=== PATIENT | female | born 1990 | race Asian ===

== ENCOUNTER 2017-06-26 13:42 | Outpatient (CLI) | payer MEDICAID, OTHER ==
[~2017-06-26] VITALS: Ht 152.4 cm; Wt 74.5 kg
[2017-06-26] MEDS ORDERED: LACTATED RINGER'S 1,000 ML IV SCH (13:49)
[2017-06-26 13:55] VITALS: BP 104/55; PULSE 90; RESP 20; Ht 152.4 cm; Wt 74.5 kg
[2017-06-26] MEDS ORDERED: PRENAT PO (14:00)
[2017-06-26] MEDS ORDERED: ACET500C5 PO (14:01)
[2017-06-26] MEDS ORDERED: BEN25 PO (14:01)
--- NOTE | 2017-06-26 14:23 | RADRPT ---
PROCEDURE: Obstetrical ultrasound for biophysical profile CLINICAL INDICATION: Biophysical profile. . TECHNIQUE: Obstetrical ultrasound of the uterus for biophysical profile. Transabdominal views are obtained. COMPARISON: None FINDINGS: Single intrauterine gestation. Presentation: Breech Placenta: Fundal No evidence of placental abruption. No evidence of placenta previa. breathing movement = 2/2 tone = 2/2 motion = 2/2 [place] = 2/2 [place] = 13.8 cm heart rate: 146 beats per minute IMPRESSION: Single intrauterine gestation. Biophysical profile 06/01 Presentation: Breech RPTAT: AADD .Talon Yang MD, MD Date Time Electronically viewed and signed by .Talon Yang MD, on 06/26/2017 14:22 .B/
[2017-06-26 15:16] LABS: ADD UMIC NO; UR ASCORBIC ACID NEGATIVE (NEGATIVE); UR BACTERIA FEW /HPF (NONE SEEN); UR BILIRUBIN (Dip) NEGATIVE (NEGATIVE); UR BLOOD (Dip) NEGATIVE (NEGATIVE); UR CLARITY SLIGHTLY CLOUDY (CLEAR); UR COLOR YELLOW (YELLOW); UR GLUCOSE (Dip) NEGATIVE (NEGATIVE); UR KETONES (Dip) NEGATIVE (NEGATIVE); UR LEUKOCYTE ESTERASE (Dip) NEGATIVE Leu/ul (NEGATIVE); UR NITRITE (Dip) NEGATIVE (NEGATIVE); UR RBC 1 /HPF (0-5); UR SPECIFIC GRAVITY (Dip) 1.019 (1.003-1.030); UR TOTAL PROTEIN (Dip) NEGATIVE (NEGATIVE); UR UROBILINOGEN (Dip) NEGATIVE (NEGATIVE)
[2017-06-26] MEDS ORDERED: SOD FERRIC GLUC COMPLX 125 MG in SOD CHLORIDE 0.9% 100 ML IVPB ONE (16:00)
[2017-06-26 16:13] LABS: BASOPHILS % 0.3 % (0.0-2.0); EOSINOPHILS # 0.1 10^3/ul (0.0-0.5); EOSINOPHILS % 0.5 % (0.0-7.0); HEMATOCRIT 28.6 % (37.0-47.0); HEMOGLOBIN 9.2 g/dl (12.0-16.0); LYMPHOCYTES # 2.2 10^3/ul (0.8-2.9); LYMPHOCYTES % 19.5 % (15.0-51.0); MEAN CORPUSCULAR HEMOGLOBIN 26.2 pg (29.0-33.0); MEAN CORPUSCULAR HGB CONC 32.2 g/dl (32.0-37.0); MEAN CORPUSCULAR VOLUME 81.5 fl (82.0-101.0); MEAN PLATELET VOLUME 10.7 fl (7.4-10.4); MONOCYTES % 8.6 % (0.0-11.0); NEUTROPHILS % 69.2 % (39.0-77.0); NUCLEATED RED BLOOD CELLS% 0.2 /100WBC (0.0-0.0); PLATELET COUNT 183 10^3/UL (140-415); RED BLOOD COUNT 3.51 10^6/ul (4.20-5.40); RED CELL DISTRIBUTION WIDTH 15.7 % (11.5-14.5); WHITE BLOOD COUNT 11.3 10^3/ul (4.8-10.8)
--- NOTE | 2017-06-26 17:24 | CONS ---
Date/Time of Note Date/Time of Note DATE: 06/26/17 TIME: 17:14 Consultation Date/Type/Reason Admit Date/Time June 26, 2017. OB triage consult Reason for Consultation This patient is a 27 years old 7 para 2 spontaneous 2 induced abortion4, who came to the triage clinic complaining of weakness and heart palpitation . On examination she is a well-developed well-nourished patient somewhat anxious and distraught with different complaint including weakness heart attack abdominal pain chest pain. On examination heart has a normal sinus rhythm no murmur chest is clear to auscultation percussion abdomen is soft very rare contraction heart tone is normal with fairly good variability no decelerations. Her general vital signs appear to be normal with blood pressure 104/55, pulse rate 90 ,respiration 20, temperature 98.2 and oxygen saturation 97% in room temperature. heartbeat was about 145/min. Laboratory Tests Test 06/26/17 14:00 06/26/17 15:45 Urine Color YELLOW Urine Clarity SLIGHTLY CLOUDY Urine pH 6.0 Urine Specific [place] 1.019 Urine Ketones NEGATIVEmg/dL Urine Nitrite NEGATIVEmg/dL Urine Bilirubin NEGATIVEmg/dL Urine Urobilinogen NEGATIVEmg/dL Urine Leukocyte Esterase NEGATIVELeu/ul Urine Microscopic RBC 1/HPF Urine Microscopic WBC 3/HPF Urine Calcium Oxalate Crystals MODERATE/HPF Urine Bacteria FEW/HPF Urine Hemoglobin NEGATIVEmg/dL Urine Glucose NEGATIVEmg/dL Urine Total Protein NEGATIVEmg/dl White Blood Count 11.310^3/ul Red Blood Count 3.5110^6/ul Hemoglobin 9.2g/dl Hematocrit 28.6% Mean Corpuscular Volume 81.5fl Mean Corpuscular Hemoglobin 26.2pg Mean Corpuscular Hemoglobin Concent 32.2g/dl Red Cell Distribution Width 15.7% Platelet Count 66036^3/UL Mean Platelet Volume 10.7fl Neutrophils % 69.2% Lymphocytes % 19.5% Monocytes % 8.6% Eosinophils % 0.5% Basophils % 0.3% Nucleated Red Blood Cells % 0.2/100WBC Neutrophils # (Manual) 7.810^3/ul Lymphocytes # 2.210^3/ul Monocytes # 1.010^3/ul Eosinophils # 0.110^3/ul Basophils # 0.010^3/ul Nucleated Red Blood Cells # 0.010^3/ul Current Medications Medications (Trade) Dose Ordered Sig/Jamari Route PRN Reason Start Time Stop Time Status Last Admin Dose Admin Lactated Ringer's 1,000 ml @ 125 mls/hr Q8H IV 06/26/17 13:49 06/26/17 16:00 125 MLS/HR Ferric Sodium Gluconate Complex/ Sodium Chloride (Ferrlecit/NS) 110 ml @ 100 mls/hr ONCE ONCE IVPB 06/26/17 16:00 06/26/17 17:05 DC 06/26/17 16:00 100 MLS/HR Constitutional: No chills, No diaphoresis, No disoriented, No febrile, No improved, No no complaints, No other, No poor po, No requiring IVF, No requiring O2 Eyes: No discharge, No no complaints, No other, No pain, No redness, No visual change ENT: other, No bleeding, No congestion, No discharge, No dysphagia, No no complaints, No pain, No sore throat Respiratory: No cough, No no complaints, No other, No pain, No pleuritic pain, No shortness of breath, No sputum, No wheezing Cardiovascular: No chest pain, No edema, No lightheadedness, No no complaints, No orthopenea, No other, No palpitations, No paroxysmal nocturnal dyspnea Gastrointestinal: No blood, No constipation, No decreased appetite, No diarrhea , No flatus, No nausea, No no complaints, No other, No pain, No passing stool, No vomiting Genitourinary: other (Due to lack of any contraction pelvic exam was not performed), No bleeding, No discharge, No dysuria, No flank pain, No hematuria, No no complaints Musculoskeletal: No back pain, No bone/joint pain, No neck pain, No no complaints, No other, No restricted range of motion, No swelling Skin: No bruising, No erythema, No laceration, No no complaints, No other, No pruritis, No rash, No skin lesions Additional Comments On ultrasound study the report was a single intrauterine gestation in breech presentation no evidence of placenta abruption or previa heart rate was 146 bpm the [place] was 13.8 cm.. The biophysical profile was 8/8. I should mention that her physician Dr. Lara Gomez ordered an iron-containing solution for illicit to be given IV which was a performed and she was discharged to be followed in her obstetricians clinic Social History Smoking Status: Never smoker Exam/Review of Systems Vital Signs Vitals Vital Signs Date Time Temp Pulse Resp B/P Pulse Ox O2 Delivery O2 Flow Rate FiO2 06/26/17 13:55 98.2 90 20 104/55 Room Air Results Result Diagram: 06/26/17 1545 Results 24 hrs Laboratory Tests Test 06/26/17 14:00 06/26/17 15:45 Urine Color YELLOW Urine Clarity SLIGHTLY CLOUDY A Urine pH 6.0 Urine Specific [place] 1.019 Urine Ketones NEGATIVE Urine Nitrite NEGATIVE Urine Bilirubin NEGATIVE Urine Urobilinogen NEGATIVE Urine Leukocyte Esterase NEGATIVE Urine Microscopic RBC 1 Urine Microscopic WBC 3 Urine Calcium Oxalate Crystals MODERATE Urine Bacteria FEW A Urine Hemoglobin NEGATIVE Urine Glucose NEGATIVE Urine Total Protein NEGATIVE White Blood Count 11.3 H Red Blood Count 3.51 L Hemoglobin 9.2 L Hematocrit 28.6 L Mean Corpuscular Volume 81.5 L Mean Corpuscular Hemoglobin 26.2 L Mean Corpuscular Hemoglobin Concent 32.2 Red Cell Distribution Width 15.7 H Platelet Count 183 Mean Platelet Volume 10.7 H Neutrophils % 69.2 Lymphocytes % 19.5 Monocytes % 8.6 Eosinophils % 0.5 Basophils % 0.3 Nucleated Red Blood Cells % 0.2 H Neutrophils # (Manual) 7.8 H Lymphocytes # 2.2 Monocytes # 1.0 H Eosinophils # 0.1 Basophils # 0.0 Nucleated Red Blood Cells # 0.0 Medications Medications Current Medications Lactated Ringer's (Lr) 1,000 ml @ 125 mls/hr Q8H IV Last administered on t 16:00; Admin Dose 125 MLS/HR; Start 06/26/17 at 13:49 BALDOMERO NAYLOR MD Jun 26, 2017 17:24
[2017-06-26 18:15] LABS: ALBUMIN 3.3 g/dl (3.3-4.9); ALBUMIN/GLOBULIN RATIO 1.06; BILIRUBIN,INDIRECT 0.1 mg/dl (0-1.1); BILIRUBIN,TOTAL 0.1 mg/dl (0.2-1.3); CALCIUM 8.8 mg/dl (8.4-10.2); CREATININE 0.76 mg/dl (0.44-1.00); POTASSIUM 3.7 mmol/L (3.5-5.1); TOTAL PROTEIN 6.4 g/dl (6.1-8.1)
== END 2017-06-26 17:45 | disposition home or self-care (01) ==
LOC: OBT 13:42 → L-D 13:44 → OBT 17:45
PROVIDERS: ATTEND Obstetrics & Gynecology
DX: O26.893 Other specified pregnancy related conditions, third trimester (principal); Z3A.32 32 weeks gestation of pregnancy; R00.2 Palpitations; R53.1 Weakness
CPT/HCPCS: 36415; 76818; 80053; 81001; 81003; 85025; J2916; J7120; Z7500; Z7610; G0463

== ENCOUNTER 2017-07-07 15:54 | Outpatient (CLI) | payer OTHER ==
[~2017-07-07] VITALS: Ht 157.5 cm; Wt 75.0 kg
[~2017-07-07 15:54] MED LIST: ACET500C5 PO; BEN25 PO; PRENAT PO
[2017-07-07 16:21] VITALS: BP 100/55; PULSE 86; RESP 20; Ht 157.5 cm; Wt 75.0 kg
[2017-07-07] MEDS ORDERED: LACTATED RINGER'S 1,000 ML IV SCH (17:00)
[2017-07-07] MEDS ORDERED: SOD FERRIC GLUC COMPLX 125 MG in SOD CHLORIDE 0.9% 100 ML IVPB ONE (18:00)
--- NOTE | 2017-07-07 19:53 | TRIAGE ---
OB Triage Datetime Report Generated by CPN: 07/07/2017 19:53 Datetime: 07/07/2017 17:51 Comments: monitors off Datetime: 07/07/2017 17:48 Labor Evaluation Frequency: 0 Monitor Mode: External Resting Tone [place]: Relaxed Heart Rate FHR Baseline Rate: 135 Monitor Mode: External US FHR Baseline Changes: No Baseline Change Variability: Moderate 6-25 bpm Accelerations: 15X15 Decelerations: None Category: Category I Datetime: 07/07/2017 16:09 Assessment Type: Triage Maternal Assessment Level of Consciousness: Fully Conscious DTR's/Clonus: DTRs 2+; No Clonus Headache: Denies Blurred Vision: No Respiratory Effort: Unlabored; Regular Rhythm; Equal Expansion Breath Sounds, Left: Clear and Equal Breath Sounds, Right: Clear and Equal Nausea/Vomiting: Denies RUQ Epigastric Pain: Denies Facial Edema: None Fall Risk Assessment History of Falling: (0) No Secondary Diagnosis: (0) No Ambulatory Aid: (0) Bedrest/Nurse Assist IV Therapy: (0) No Gait: (0) Normal/Bedrest/Immobile Mental Status: (0) Oriented to Own Ability Fall Score: 0 Fall Risk Score Definition: No Risk: No action required Datetime: 06/26/2017 17:12 Time of Arrival: 07/07/2017 16:08 EGA: 34.4 Arrived By: Ambulatory Arrived From: Home Chief Complaint: pt here for serial fe infusions Movement: Present Contractions: Denies/Absent Rupture of Membranes: Denies Vaginal Bleeding: None Vaginal Discharge: Denies Recent Sexual Intercouse: Denies Abdominal Trauma: Not Applicable Patient Complaints: None Time Provider Notified: 07/07/2017 16:20 Provider Notified: [email or web address] Datetime: 06/26/2017 17:01 Time of Arrival: 06/26/2017 13:25 EGA: 33.0 Arrived By: Ambulatory Arrived From: Home Chief Complaint: CAME WITH AN RX FOR NST/ BPP AND IV DOSE OF FERRLECIT Movement: Present Contractions: Denies/Absent Rupture of Membranes: Denies Vaginal Bleeding: None Vaginal Discharge: Denies Recent Sexual Intercouse: Denies Abdominal Trauma: Not Applicable Additional Patient Complaints: DIZZINESS ON EXERTION, FEELING VERY WEAK WITH PREVIOUS DIAGNOSIS OF HEART MURMUR WITH NOT BEING FOLLOWE BY AN WIRELESS TEAM MEMBER. Time Provider Notified: 06/26/2017 15:00 Provider Notified: DR. CALDERON Initial Plan: NST/ BPP IV HYDRATION Datetime: 06/26/2017 16:32 Stage of : OB Triage Datetime: 06/26/2017 15:16 Labor Evaluation Frequency: 0 Monitor Mode: External Duration (sec)2399: 0 Resting Tone [place]: Relaxed Contraction Comments: PT DENIES UC'S AT THE BEDSIDE Heart Rate FHR Baseline Rate: 145 Monitor Mode: External US Variability: Moderate 6-25 bpm Accelerations: 15X15 Decelerations: None Category: Category I Comments: NST REACTIVE FOR GESTATIONAL AGE
--- NOTE | 2017-07-07 21:36 | PN ---
Triage Information Date/Time July 07, 2017 Reason for visit: Patient was sent from Dr. Leon office for iron infusion due to history of anemia. Cannot tolerate oral iron Weeks of Gestation 34 weeks and 4 days /Para 7 para 2 Patient had a history of miscarriage prior to current had significant bleeding that need to undergoing blood transfusion. Per patient could not tolerate oral iron treatment and for that reason has been receiving weekly iron infusion. She comes to triage every week to get IV infusion. Denies any vaginal bleeding, leaking of fluid or uterine contractions or any other complaints. Denies any dizziness, lightheadedness, prior history of thalassemia or any hematologic problem in the past. Diabetes: none Hypertention: none Objective Vital Signs Date Time Temp Pulse Resp B/P Pulse Ox O2 Delivery O2 Flow Rate FiO2 07/07/17 16:21 98.0 86 20 100/55 Room Air Heart Rate: 120's Contractions: None Exam Appears: Alert and oriented 4. Patient does not appear to be in any acute distress. Abdomen: Soft, gravid, fundal height consistent with gestational age. No tenderness, no rebound tenderness or guarding Received IV iron infusion. Denies any symptoms Reports last time at doctor's office had her hemoglobin checked and it was 9. History: Category 1. Baseline 135. No contractions. Disposition: Discharge Assessment/Plan Patient was discharged home in stable condition Follow up with her OB doctor at her next appointment in less than 1 week or sooner as needed Advised the patient about iron rich diet KVNG DILL MD Jul 07, 2017 21:36
--- NOTE | 2017-07-07 21:42 | TRIAGE ---
OB Triage Datetime Report Generated by CPN: 07/07/2017 21:42 Datetime: 07/07/2017 20:30 Time of Arrival: 07/07/2017 16:08 EGA: 34.4 Arrived By: Ambulatory Arrived From: Home Additional Patient Complaints: IV IRON INFUSION Time Provider Notified: 07/07/2017 16:20 Provider Notified: KVNG
== END 2017-07-07 20:08 | disposition home or self-care (01) ==
LOC: OBT 15:54 → OBG 15:56 → OBT 20:08
PROVIDERS: ATTEND Obstetrics & Gynecology
DX: O99.013 Anemia complicating pregnancy, third trimester (principal); D64.9 Anemia, unspecified; Z3A.34 34 weeks gestation of pregnancy
CPT/HCPCS: 36415; 96360; 96361; 96365; J2916; J7120; Z7500; Z7610; G0463

== ENCOUNTER 2017-07-27 16:56 | Outpatient (CLI) | payer OTHER ==
[~2017-07-27] VITALS: Ht 157.5 cm; Wt 75.4 kg
[2017-07-27 17:10] VITALS: BP 109/65; PULSE 91; RESP 18
[2017-07-27 17:12] VITALS: Ht 157.5 cm; Wt 75.4 kg
--- NOTE | 2017-07-27 19:07 | RADRPT ---
PROCEDURE: OB ultrasound CLINICAL INDICATION: Follow-up pelvic pain TECHNIQUE: Multiple transverse and longitudinal OB images of the pelvis were obtained. The images were reviewed on a high-resolution PACS workstation. COMPARISON: 06/26/2017 FINDINGS: A single live intrauterine is seen with a heart rate of 139 beats per minute. The pr esentation is vertex. The placenta is right fundal and grade 2. No evidence of placenta previa or a bruption is seen. IMPRESSION: Right fundal location of the placenta. RPTAT: HPNM Physician Neymar Date Time Electronically viewed and signed by Physician Neymar on 07/27/2017 19:06 /
--- NOTE | 2017-07-27 20:49 | CONS ---
Date/Time of Note Date/Time of Note DATE: 07/27/17 TIME: 20:33 Consultation Date/Type/Reason Admit Date/Time July 272016 Ob triage consult. This patient is a 27 years old G7 P 2 Ab 4 ,living 2. with EDC of 08/13/2017, which makes her 36 weeks and 3 days now. She came to triage complaining pain on the R side of her abdomen. on examination she is a well developed, well nourished woman She is scheduled to have a repeat C Section on 08/14/2017 Her general vital signs are WNL. Blood presser is 109/65. pulse rate is 91, respiration 18 and temperature p8.5. heart rate is 135. No abdominal tenderness or bruising, no CVA tenderness. heart tone is normal with good variability, and occasional acceleration, no decells. Constitutional: No chills, No diaphoresis, No disoriented, No febrile, No improved, No no complaints, No other, No poor po, No requiring IVF, No requiring O2 Eyes: No discharge, No no complaints, No other, No pain, No redness, No visual change ENT: No bleeding, No congestion, No discharge, No dysphagia, No no complaints, No other, No pain, No sore throat Respiratory: No cough, No no complaints, No other, No pain, No pleuritic pain, No shortness of breath, No sputum, No wheezing Cardiovascular: No chest pain, No edema, No lightheadedness, No no complaints, No orthopenea, No other, No palpitations, No paroxysmal nocturnal dyspnea Gastrointestinal: No blood, No constipation, No decreased appetite, No diarrhea , No flatus, No nausea, No no complaints, No other, No pain, No passing stool, No vomiting Genitourinary: No bleeding, No discharge, No dysuria, No flank pain, No hematuria, No no complaints, No other Musculoskeletal: No back pain, No bone/joint pain, No neck pain, No no complaints, No other, No restricted range of motion, No swelling Skin: No bruising, No erythema, No laceration, No no complaints, No other, No pruritis, No rash, No skin lesions Neurologic: No confusion, No dizziness, No focal-weakness, No headache, No no complaints, No other, No seizure, No syncope Additional Comments Her lab tests and ultrasound studies unremarkable: PROCEDURE: OB ultrasound CLINICAL INDICATION: Follow-up pelvic pain (FINDINGS: A single live intrauterine is seen with a heart rate of 139 beats per minute. The presentation is vertex. The placenta is right fundal and grade 2. No evidence of placenta previa or abruption is seen. IMPRESSION: Right fundal location of the placenta.) Disposition, reassurance given and discharged to followed in her household cook's clinic. Exam/Review of Systems Vital Signs Vitals Vital Signs Date Time Temp Pulse Resp B/P Pulse Ox O2 Delivery O2 Flow Rate FiO2 07/27/17 17:10 98.5 91 18 109/65 Room Air BALDOMERO NAYLOR MD Jul 27, 2017 20:46
--- NOTE | 2017-07-27 22:26 | TRIAGE ---
OB Triage Datetime Report Generated by CPN: 07/27/2017 22:26 Datetime: 07/27/2017 18:29 Stage of : OB Triage Datetime: 07/27/2017 18:22 Labor Evaluation Frequency: occasional Monitor Mode: External Duration (sec)2399: 30-60 Pattern: Normal: <= 5 Contractions in 10 Minutes Resting Tone [place]: Relaxed Heart Rate FHR Baseline Rate: 135 Monitor Mode: External US Variability: Moderate 6-25 bpm Accelerations: 15X15 Decelerations: None Category: Category I Datetime: 07/27/2017 17:17 Stage of : OB Triage Assessment Type: Triage Maternal Assessment Level of Consciousness: Fully Conscious DTR's/Clonus: DTRs 2+; No Clonus Headache: Denies Blurred Vision: No Respiratory Effort: Unlabored; Regular Rhythm; Equal Expansion Breath Sounds, Left: Clear and Equal Breath Sounds, Right: Clear and Equal Nausea/Vomiting: Denies RUQ Epigastric Pain: Denies Lower Extremities Edema: None Degree: None Upper Extremities Edema: None Degree: None Facial Edema: None Temperature Route: Axillary Fall Risk Assessment History of Falling: (25) Yes Secondary Diagnosis: (0) No Ambulatory Aid: (0) Bedrest/Nurse Assist IV Therapy: (0) No Gait: (0) Normal/Bedrest/Immobile Mental Status: (0) Oriented to Own Ability Fall Score: 25 Fall Risk Score Definition: Low Risk: Please see standard fall prevention interventions Labor Evaluation Frequency: OCCASIONAL Monitor Mode: External Duration (sec)2399: 50 SRC Quality: Mild Pattern: Normal: <= 5 Contractions in 10 Minutes Heart Rate FHR Baseline Rate: 135 Monitor Mode: External US FHR Baseline Changes: No Baseline Change Variability: Moderate 6-25 bpm Accelerations: 15X15 Decelerations: None Category: Category I Pain Assessment Pain Scale: 4 Pain Presence: Intermittent Pain Type: Cramping Pain Location: Abdomen; Back Pain Goal: 2 Pain Relief Measures: Comfort Measures Datetime: 07/27/2017 17:15 Time of Arrival: 07/27/2017 16:50 EGA: 36.3 Arrived By: Wheelchair Arrived From: Home Chief Complaint: STATED SHE FELL LAST NIGHT Movement: Present Contractions: Occasional Rupture of Membranes: Denies Vaginal Bleeding: None Vaginal Discharge: Denies Recent Sexual Intercouse: Denies Abdominal Trauma: Fall Patient Complaints: Cramping; Back Pain Time Provider Notified: 07/27/2017 18:05 Provider Notified: Dr. hoover Initial Plan: US, have laborist evaluate patient Datetime: 07/07/2017 20:30 EGA: 33.4 Chief Complaint: IV IRON INFUSION Datetime: 07/07/2017 16:09 Fall Score: 0 Fall Risk Score Definition: No Risk: No action required Datetime: 06/26/2017 17:12 EGA: 33.4 Datetime: 06/26/2017 17:01 EGA: 32.0
== END 2017-07-27 19:37 | disposition home or self-care (01) ==
LOC: OBT 16:56 → L-D 16:58 → OBT 19:37
PROVIDERS: ATTEND Obstetrics & Gynecology
DX: O26.893 Other specified pregnancy related conditions, third trimester (principal); Z3A.36 36 weeks gestation of pregnancy; R10.2 Pelvic and perineal pain
CPT/HCPCS: 76815; Z7500; G0463

== ENCOUNTER 2017-08-16 05:22 | Inpatient (IN) | payer OTHER ==
[~2017-08-16] VITALS: Ht 157.5 cm; Wt 75.3 kg
[2017-08-16] MEDS ORDERED: LACTATED RINGER'S 1,000 ML IV SCH (05:28)
[2017-08-16] MEDS ORDERED: MISOPROSTOL 200 MCG TAB PR PRN (05:30)
[2017-08-16] MEDS ORDERED: CEFAZOLIN 2 GM/50 ML (PMX) 50 ML IV SCH (05:30)
[2017-08-16] MEDS ORDERED: METHYLERGONOVINE 0.2 MG INJ IM PRN (05:30)
[2017-08-16] MEDS ORDERED: OXYTOCIN 30 UNITS/LR 500 ML IV PRN (05:30)
[2017-08-16] MEDS ORDERED: OXYTOCIN 30 UNITS/LR 500 ML IV SCH ×2 (05:30→11:00)
[2017-08-16] MEDS ORDERED: CARBOPROST 250 MCG INJ IM PRN (05:30)
[2017-08-16 05:34] VITALS: BP 116/68; PULSE 88; RESP 18; Ht 157.5 cm; Wt 75.3 kg
[2017-08-16 06:01] LABS: BASOPHILS % 0.2 % (0.0-2.0); EOSINOPHILS # 0.1 10^3/ul (0.0-0.5); EOSINOPHILS % 0.7 % (0.0-7.0); HEMATOCRIT 33.1 % (37.0-47.0); HEMOGLOBIN 10.3 g/dl (12.0-16.0); LYMPHOCYTES # 2.5 10^3/ul (0.8-2.9); LYMPHOCYTES % 25.5 % (15.0-51.0); MEAN CORPUSCULAR HEMOGLOBIN 25.1 pg (29.0-33.0); MEAN CORPUSCULAR HGB CONC 31.1 g/dl (32.0-37.0); MEAN CORPUSCULAR VOLUME 80.7 fl (82.0-101.0); MEAN PLATELET VOLUME 11.4 fl (7.4-10.4); MONOCYTES % 9.9 % (0.0-11.0); NEUTROPHIL # 6.2 10^3/ul (1.6-7.5); NEUTROPHILS % 62.4 % (39.0-77.0); NUCLEATED RED BLOOD CELLS% 0.2 /100WBC (0.0-0.0); PLATELET COUNT 193 10^3/UL (140-415); RED CELL DISTRIBUTION WIDTH 17.2 % (11.5-14.5)
[2017-08-16 06:28] LABS: INR 0.92; PARTIAL THROMBOPLASTIN TIME 26.1 Sec (25.0-35.0); PROTIME 12.4 Sec (12.2-14.2)
[2017-08-16] MEDS ORDERED: KETOROLAC 30 MG INJ IV SCH (08:00)
[2017-08-16] MEDS ORDERED: BISACODYL (EC) 5 MG TAB PO PRN (08:00)
[2017-08-16] MEDS ORDERED: DIPHENHYDRAMINE 50 MG CAP PO PRN (08:00)
[2017-08-16] MEDS ORDERED: HYDROCODONE/APAP (5/325) TAB PO PRN (08:00)
[2017-08-16] MEDS ORDERED: ZOLPIDEM 5 MG TAB PO PRN ×2 (08:00→09:30)
[2017-08-16] MEDS ORDERED: ONDANSETRON 4 MG INJ IV PRN ×2 (08:00→09:30)
[2017-08-16] MEDS ORDERED: HYDROmorphONE 1 MG/ML SYG IV PRN (08:00)
[2017-08-16] MEDS ORDERED: FENTAnyl 50 MCG/ML VIAL ONE (08:02)
[2017-08-16] MEDS ORDERED: morphine SULFATE/PF (10 MG/10 ML) INJ ONE (08:03)
--- NOTE | 2017-08-16 08:03 | SIPON ---
Date/Time of Note Date/Time of Note DATE: 08/16/17 TIME: 08:02 Operative Report Preoperative Diagnosis previous c/s habitual Postoperative Diagnosis same Operation/Procedure Performed REPEAT C/S Surgeon see signature line clinic office assistant ARELY FOFANA Anesthesia: spinal Estimated blood loss: other Transfusion Required none Specimen PLACENTA Grafts/Implants none Complications none TREVOR CALDERON MD Aug 16, 2017 08:03
[2017-08-16] MEDS ORDERED: PHENYLephrine (100 MCG/ML) 5ML SYG ONE ×3 (08:20→08:58)
[2017-08-16] MEDS ORDERED: DEXAMETHASONE 4 MG/ML 1 ML INJ ONE (08:21)
[2017-08-16] MEDS ORDERED: EPHEDrine SULFATE 50 MG/5 ML SYG ONE (08:23)
[2017-08-16] MEDS ORDERED: NALOXONE (0.4 MG/ML) INJ IV PRN (09:30)
[2017-08-16] MEDS ORDERED: HYDROmorphONE 0.5 MG/0.5 ML SYG IV PRN ×2 (09:30)
[2017-08-16] MEDS ORDERED: KETOROLAC 30 MG INJ IV PRN (09:30)
[2017-08-16] MEDS ORDERED: NALBUPHINE HCL (10 MG/1 ML) INJ IV PRN (09:30)
--- NOTE | 2017-08-16 10:06 | OPR ---
DATE OF OPERATION: 08/16/2017 PREOPERATIVE DIAGNOSES: 1. Term . 2. Previous section. 3. Habitual . POSTOPERATIVE DIAGNOSIS: 1. Term . 2. Previous section. 3. Habitual . 4. Baby boy, Apgars 9, breech presentation. SURGEON: Dr. Holland DYER ASSISTANT: Dr. Beach ANESTHESIA: Spinal, Dr. Hrarison PROCEDURE: The patient was given spinal anesthesia, placed in the supine position. The abdomen was prepped and draped and a Eckert catheter was placed in the bladder. The abdomen was prepped and caitlin ped and an elliptical incision was made around the previous old scar. The abdomen was opened in lay ers without difficulties. The abdominal cavity was reached. The lower uterine segment was identifi ed and the bladder flap was made. The uterus was opened in the midline and the incision was increas ed laterally on either side for about 3 inches. The baby's buttocks were directed to the incision. The baby was transverse with the back down. The baby's buttock were switched to delivered by breec h presentation. It was a kia breech. The baby's arms were tacked down and the head was delivered finally, with a cord that was clamped an d cut. The baby was handed over to the materials specialist team. The baby's was 9. The cord blood was obtained. The placenta was removed. The uterus was swabbed out. The cervix was opened with a ring forceps and the uterus was closed in 2 layers using #1 Monocryl continuous suture imbedding th e first line of suture and hemostasis was good. Both tubes and ovaries were normal. The abdomen wa s closed after sponge counts and instrument counts were correct with a 2-0 Vicryl suture for periton eum, #0 PDS looped suture for the fascia, 2-0 Vicryl for the subcutaneous tissue, and 3-0 Monocryl s ubcuticular to the skin. Dermabond and Steri-Strips were used. Interceed was used on the area of t he incision for adhesion prevention. The patient tolerated the procedure well and left the OR awake and stable. Sponge counts and instrument counts were correct. Intravenous antibiotics were given for prophylaxis. Blood loss was approximately 500 mL, and the urine was clear again. Dictated By: TREVOR COOK/GIDEON Conf#: [id number] [facility]#: [id number]
[2017-08-16] MEDS: OXYTOCIN 30 UNITS/LR 500 ML IV SCH ×2 (10:45→12:06)
[2017-08-16] MEDS: DIPHENHYDRAMINE 50 MG INJ IV PRN (12:06)
[2017-08-16 12:15] VITALS: BP 118/76; PULSE 67; RESP 18
[2017-08-16 12:35] VITALS: BP 129/54; PULSE 60; RESP 19
[2017-08-16 15:40] VITALS: BP 105/57; PULSE 72; RESP 19
[2017-08-16] MEDS: METOCLOPRAMIDE 10 MG TAB PO SCH ×3 (17:10→23:49)
[2017-08-16] MEDS: CEFAZOLIN 1 GM/50 ML (PMX) 50 ML IVPB SCH (17:10)
[2017-08-16] MEDS: LACTATED RINGER'S 1,000 ML IV SCH (17:10)
[2017-08-16 19:45] VITALS: BP 90/50; PULSE 72; RESP 18
[2017-08-16 23:50] VITALS: BP 92/61; PULSE 75; RESP 18
[2017-08-17] MEDS: CEFAZOLIN 1 GM/50 ML (PMX) 50 ML IVPB SCH ×3 (01:04→18:31)
[2017-08-17] MEDS: LACTATED RINGER'S 1,000 ML IV SCH ×4 (01:05→15:02)
[2017-08-17] MEDS: DIPHENHYDRAMINE 50 MG INJ IV PRN (01:05)
[2017-08-17 04:08] VITALS: BP 95/56; PULSE 61; RESP 18
[2017-08-17] MEDS: METOCLOPRAMIDE 10 MG TAB PO SCH ×3 (05:43→18:30)
[2017-08-17 08:30] VITALS: BP 116/65; PULSE 75; RESP 17
[2017-08-17] MEDS: HYDROCODONE/APAP (5/325) TAB PO PRN (10:05)
[2017-08-17 10:41] LABS: BASOPHILS % 0.2 % (0.0-2.0); EOSINOPHILS % 0.2 % (0.0-7.0); HEMATOCRIT 34.6 % (37.0-47.0); HEMOGLOBIN 10.6 g/dl (12.0-16.0); LYMPHOCYTES # 2.7 10^3/ul (0.8-2.9); LYMPHOCYTES % 15.9 % (15.0-51.0); MEAN CORPUSCULAR HEMOGLOBIN 24.5 pg (29.0-33.0); MEAN CORPUSCULAR HGB CONC 30.6 g/dl (32.0-37.0); MEAN CORPUSCULAR VOLUME 79.9 fl (82.0-101.0); MEAN PLATELET VOLUME 11.4 fl (7.4-10.4); MONOCYTE # 1.3 10^3/ul (0.3-0.9); MONOCYTES % 7.8 % (0.0-11.0); NEUTROPHILS % 75.3 % (39.0-77.0); PLATELET COUNT 191 10^3/UL (140-415); RED BLOOD COUNT 4.33 10^6/ul (4.20-5.40); RED CELL DISTRIBUTION WIDTH 17.5 % (11.5-14.5); WHITE BLOOD COUNT 17.3 10^3/ul (4.8-10.8)
[2017-08-17 10:52] LABS: CREATININE 0.61 mg/dl (0.44-1.00); POTASSIUM 4.2 mmol/L (3.5-5.1)
--- NOTE | 2017-08-17 11:21 | PN ---
Date/Time of Note Date/Time of Note DATE: 08/17/17 TIME: 11:19 Assessment/Plan Lines/Catheters IV Catheter Type (from Nrsg): Peripheral IV Subjective 24 Hr Interval Summary Day 1 post patient is febrile feels good in pain not controlled with p.o. meds Otherwise she is doing good she is stable with the uterus contracted the incision is dry lochia normal no active bleeding Exam/Review of Systems Vital Signs Vitals Vital Signs Date Time Temp Pulse Resp B/P Pulse Ox O2 Delivery O2 Flow Rate FiO2 08/17/17 08:30 98.0 75 17 116/65 Room Air 08/17/17 01:48 98 21 Intake and Output 08/16/17 08/16/17 08/17/17 15:00 23:00 07:00 Intake Total 750 ml 250 ml 925 ml Output Total 400 ml 2600 ml 1350 ml Balance 350 ml -2350 ml -425 ml Exam Constitutional: alert, oriented, well developed Psych: nl mood/affect, no complaints Head: atraumatic, normocephalic Eyes: EOMI, nl conjunctiva, nl lids, nl sclera ENMT: mucosa pink and moist, nl external ears & nose, nl lips & teeth, nl nasal mucosa & septum Neck: non-tender, supple Respiratory: clear to auscultation, normal air movement Cardiovascular: nl pulses, regular rate and rhythm Gastrointestinal: nl liver, spleen, non-tender, soft Musculoskeletal: nl extremities to inspection, nl gait and stance Extremities: normal pulses Neurological: CUT AND COVER LINE WORKER II-XII intact, nl mental status, nl speech, nl strength Skin: nl turgor, rash or lesions Lymph: nl lymph nodes Results Result Diagram: 08/17/17 1014 08/17/17 1014 TREVOR CALDERON MD Aug 17, 2017 11:21
[2017-08-17] MEDS ORDERED: BISACODYL (EC) 5 MG TAB PO ONE (11:30)
--- NOTE | 2017-08-17 12:30 | PREOPHP ---
DATE OF ADMISSION: 08/16/2017 The patient coming for surgical procedure on 08/16/2017. HISTORY OF PRESENT ILLNESS: This is a 26-year-old female, 7, para 2, abortions 4, with 2 li ving children. This patient had a vaginal delivery followed by a section. She is at this time with a last period of 11/19/2016 and EDC of 08/26/2017. She is being admitted for a r epeat section This is a 26-year-old female, who had been seeing me since early with a history of habitua l abortions and she had been treated with Prometrium during the first half of the and she has been on baby aspirin until 32 weeks of . This patient 39 weeks' gestation and sh e is undergoing a repeat section. She had no complications during this and she h as a history of 1 . She had been transfused in 2016 due to miscarriage. She has a history of anemia. She had rheumatic fever. She had heart murmur. FAMILY HISTORY: Hypertension in her parents. Her oldest daughter with epilepsy, autism and thyroid disease. ALLERGIES: SHE IS NOT ALLERGIC TO ANY MEDICATIONS. SOCIAL HISTORY: She does not drink or smoke, and she has no history of alcohol. PHYSICAL EXAMINATION: GENERAL: She is 5 feet 2 inches, weight is started at 136 and by now is 166, a 30- pound weight gai n. Blood pressure is normal with a blood pressure of 110/60, pulse is 80, respirations 16. HEAD AND NECK: Normal. CHEST: Clear. HEART: Normal sinus rhythm. ABDOMEN: Soft, nontender. No masses. The heart tones are normal. PELVIC: Cervix is closed, long and posterior. EXTREMITIES: Normal with normal pulses, normal reflexes and no edema. DIAGNOSES: Term with previous section. PLAN: The patient is undergoing a repeat section. She has been advised of the possible ri sks and possible complications of the procedure with her alternatives and options. Written informat ion was provided. She had no more questions and agreed to go ahead with the procedure with full und erstanding and no more questions. Dictated By: TREVOR COOK/GIDEON Conf#: [id number] DID#: [id number]
[2017-08-17] MEDS: KETOROLAC 30 MG INJ IV SCH ×2 (15:22→21:42)
[2017-08-17 16:00] VITALS: BP 116/68; PULSE 60; RESP 17
[2017-08-17 19:45] VITALS: BP 122/74; PULSE 73; RESP 18
[2017-08-18] MEDS: CEFAZOLIN 1 GM/50 ML (PMX) 50 ML IVPB SCH ×3 (02:18→18:28)
[2017-08-18] MEDS: KETOROLAC 30 MG INJ IV SCH ×4 (03:42→21:12)
[2017-08-18 04:10] VITALS: BP 114/71; PULSE 63; RESP 18
[2017-08-18] MEDS: METOCLOPRAMIDE 10 MG TAB PO SCH ×4 (06:00→21:11)
[2017-08-18 08:00] VITALS: BP 127/65; PULSE 69; RESP 18
--- NOTE | 2017-08-18 11:17 | PN ---
Date/Time of Note Date/Time of Note DATE: 08/18/17 TIME: 11:14 Assessment/Plan Lines/Catheters IV Catheter Type (from Nrsg): Saline Lock Subjective 24 Hr Interval Summary Date 2 post section Afebrile passing gases tolerating diet, pain controlled with p.o. meds uterus contracted, lochia normal Incision healing well. Ambulating Constitutional: BM, ambulates, flatus, improved, no complaints, urine output Feeding: advancing diet Detailed Summary Eyes: no complaints ENT: no complaints Respiratory: no complaints Cardiovascular: no complaints Gastrointestinal: no complaints Genitourinary: no complaints Musculoskeletal: no complaints Skin: no complaints Neurologic: no complaints Endocrine: no complaints Lymphatic: no complaints Psychological: nl mood/affect, no complaints Immunologic: no complaints Exam/Review of Systems Vital Signs Vitals Vital Signs Date Time Temp Pulse Resp B/P Pulse Ox O2 Delivery O2 Flow Rate FiO2 08/18/17 08:00 98.7 69 18 127/65 Room Air 08/17/17 01:48 98 21 Intake and Output 08/17/17 08/17/17 08/18/17 15:00 23:00 07:00 Intake Total 1050 ml 525 ml Output Total 1900 ml 700 ml Balance -850 ml -175 ml Exam Constitutional: alert, oriented, well developed Psych: nl mood/affect, no complaints Head: atraumatic, normocephalic Eyes: EOMI, nl conjunctiva, nl lids, nl sclera ENMT: mucosa pink and moist, nl external ears & nose, nl lips & teeth, nl nasal mucosa & septum Neck: non-tender, supple Respiratory: clear to auscultation, normal air movement Cardiovascular: nl pulses, regular rate and rhythm Gastrointestinal: nl liver, spleen, non-tender, soft Musculoskeletal: nl extremities to inspection, nl gait and stance Extremities: normal pulses 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
[2017-08-18 11:43] LABS: BASOPHILS % 0.3 % (0.0-2.0); EOSINOPHILS # 0.1 10^3/ul (0.0-0.5); EOSINOPHILS % 0.5 % (0.0-7.0); HEMATOCRIT 31.5 % (37.0-47.0); HEMOGLOBIN 9.8 g/dl (12.0-16.0); LYMPHOCYTES # 2.4 10^3/ul (0.8-2.9); LYMPHOCYTES % 17.9 % (15.0-51.0); MEAN CORPUSCULAR HGB CONC 31.1 g/dl (32.0-37.0); MEAN CORPUSCULAR VOLUME 80.4 fl (82.0-101.0); MEAN PLATELET VOLUME 11.7 fl (7.4-10.4); MONOCYTE # 0.8 10^3/ul (0.3-0.9); MONOCYTES % 5.8 % (0.0-11.0); NEUTROPHIL # 9.9 10^3/ul (1.6-7.5); NEUTROPHILS % 74.9 % (39.0-77.0); PLATELET COUNT 211 10^3/UL (140-415); RED BLOOD COUNT 3.92 10^6/ul (4.20-5.40); RED CELL DISTRIBUTION WIDTH 17.8 % (11.5-14.5); WHITE BLOOD COUNT 13.2 10^3/ul (4.8-10.8)
[2017-08-18 16:54] VITALS: BP 127/79; PULSE 79; RESP 18
[2017-08-18] MEDS ORDERED: KETOROLAC 30 MG INJ IV SCH (17:30)
[2017-08-18 20:00] VITALS: BP 121/72; PULSE 50; RESP 16
[2017-08-18] MEDS: LACTATED RINGER'S 1,000 ML IV SCH (23:54)
[2017-08-19] MEDS: HYDROCODONE/APAP (5/325) TAB PO PRN ×2 (02:29→10:11)
[2017-08-19] MEDS: CEFAZOLIN 1 GM/50 ML (PMX) 50 ML IVPB SCH (02:29)
[2017-08-19 04:00] VITALS: BP 113/61; PULSE 63; RESP 16
[2017-08-19] MEDS: LACTATED RINGER'S 1,000 ML IV SCH (05:00)
[2017-08-19 08:00] VITALS: BP 109/73; PULSE 64; RESP 18
[2017-08-19] MEDS: METOCLOPRAMIDE 10 MG TAB PO SCH ×2 (10:10)
--- NOTE | 2017-08-19 13:05 | PD.PPDC ---
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
--- NOTE | 2017-08-20 03:05 | DS ---
DATE OF ADMISSION: 08/16/2017 DATE OF DISCHARGE: 08/19/2017 HISTORY: This is a 27-year-old female, 7, para 2 with 4 pregnancies that were lost from hab itual . The patient's EDC was 08/26/2017. The first child vaginal delivery and then the se cond child by and then several miscarriages. The patient was given treatment during early with progesterone suppositories and baby aspirin and she was diagnosed with habitual abor tion but reached full term and a repeat section was done. She did very well and she was discharged on her third day postop with ibuprofen and [place] p.r.n. She was given instructio ns of what to do and not to do and to see me in the office in a week or earlier if she had any probl ems. She was ambulatory. She was tolerating diet and her pain was bearable with p.o. medications. She was with a clean incision, afebrile, with almost near normal blood work with no symptoms of ane kimi, slightly anemic, and she was actually in very stable and good condition at the time of discharg e. She was sent home with instructions to see me in the office in a week or earlier if she had any problems. She had been eager to go home because she feels good. Dictated By: TREVOR COOK/GIDEON Conf#: [id number] DID#: [id number]
--- NOTE | 2017-08-24 10:28 | DS ---
Date/Time of Note Date/Time of Note DATE: 08/24/17 TIME: 10:28 Obstetrical Discharge Record Final Diagnosis Final Diagnosis: Term delivered Section Section: Repeat Condition on Discharge Physical Assessment Patient Condition: Good TREVOR CALDERON MD Aug 24, 2017 10:28
== END 2017-08-19 13:50 | disposition home or self-care (01) | DRG 766 ==
LOC: L-D 05:22 → PP1 11:40
PROVIDERS: ADMIT Obstetrics & Gynecology; ATTEND Obstetrics & Gynecology
PROC: 10D00Z1 Extraction of Products of Conception, Low, Open Approach (ICD-10-PCS; principal; 2017-08-16 07:30)
DX: O32.1XX0 Maternal care for breech presentation, not applicable or unspecified (principal); Z37.0 Single live birth; Z3A.00 Weeks of gestation of pregnancy not specified; O34.211 Maternal care for low transverse scar from previous cesarean delivery
CPT/HCPCS: 80051; 82565; 84520; 85025; 85610; 85730; 86592; 86850; 86900; 86901; 87340; 94760; 99464; J0690; J1100; J1200; J1885; J2274; J2370; J2405; J2590; J3010; J7120